=== PATIENT | female | born 1995 | race African-American/Black ===

== ENCOUNTER 2018-12-07 04:25 | Emergency (ER) | payer SELFPAY ==
[2018-12-07] MEDS ORDERED: Lidocaine 2% VISCOUS* 15 ML UDC PO ONE (05:45)
[2018-12-07] MEDS ORDERED: Al Hydrox/Mg Hydrox/Simet LIQ* 30 ML UDC PO ONE (05:45)
[2018-12-07] MEDS ORDERED: Ondansetron ODT TAB* 4 MG PO ONE (05:46)
--- NOTE | 2018-12-07 05:47 | ED ---
Abdominal Pain/Female - HPI Summary HPI Summary: Patient is a 23-year-old female who presents emergency department for abdominal pain that started acutely around 0 300 today. Patient states that she was sitting when pain started acutely. She notes nausea without vomiting. Pt. denies drug or ETOH use to me. Denies past medical hx. Pt. denies fever, chills , V/D, constipation, URI sxs, vaginal dc or bleeding. Pt. states she has had similar sxs in the past and was dx with gastritis. Sxs are moderate in severity. - History of Current Complaint Chief Complaint: EDAbdPain Stated Complaint: "SEVERE STOMACH PAIN" PER PT Time Seen by Provider: 12/07/18 05:35 Hx Obtained From: Patient Pain Intensity: 1 Allergies/Adverse Reactions: Allergies Allergy/AdvReac Type Severity Reaction Status Date / Time ipecac Allergy Unknown Verified 12/07/18 04:35 Reaction Details promethazine Allergy Unknown Verified 12/07/18 04:36 Reaction Details PMH/Surg Hx/FS Hx/Imm Hx Previously Healthy: Yes Infectious Disease History: No Infectious Disease History: Denies: Traveled Outside the [place] in Last 30 Days - Family History Known Family History: Positive: Non-Contributory - Social History Occupation: Employed Full-time Lives: With Family Alcohol Use: Occasionally Substance Use Type: Reports: Marijuana Smoking Status (MU): Light Every Day Tobacco Smoker Review of Systems Constitutional: Negative Negative: Fever, Chills Eyes: Negative ENT: Negative Cardiovascular: Negative Respiratory: Negative Positive: Abdominal Pain. Negative: Vomiting, Diarrhea, Nausea Genitourinary: Negative Negative: burning, dysuria, discharge, flank pain Musculoskeletal: Negative Neurological: Negative All Other Systems Reviewed And Are Negative: Yes Physical Exam Triage Information Reviewed: Yes Vital Signs On Initial Exam: Initial Vitals Temp Pulse Resp BP Pulse Ox 98.8 F 78 16 132/66 99 12/07/18 04:28 12/07/18 04:28 12/07/18 04:28 12/07/18 04:28 12/07/18 04:28 Vital Signs Reviewed: Yes Appearance: Positive: Well-Appearing - Pt. lying in bed sleeping when I walked into room. Friend present. Skin: Positive: Warm, Dry Head/Face: Positive: Normal Head/Face Inspection Eyes: Positive: Normal, EOMI Neck: Positive: Supple Respiratory/Lung Sounds: Positive: Clear to Auscultation, Breath Sounds Present Cardiovascular: Positive: Normal, RRR Abdomen Description: Positive: Other: - Abd. is soft with pain to epigastric region and LLQ. No rebound or guarding. Neurological: Positive: Normal, CN Intact II-III Psychiatric: Positive: Affect/Mood Appropriate Diagnostics - Vital Signs Vital Signs Temp Pulse Resp BP Pulse Ox 12/07/18 04:28 98.8 F 78 16 132/66 99 - Laboratory Result Diagrams: 12/07/18 05:55 12/07/18 05:55 Lab Statement: Any lab studies that have been ordered have been reviewed, and results considered in the medical decision making process. Abdominal Pain Fem Course/Dx - Course Course Of Treatment: Patient presenting with abdominal pain. He sleeping comfortably when I initially examined her. Vital signs are stable. Basic labs and urinalysis ordered. Patient given GI cocktail dose of Zofran which helped her symptoms. Blood work is unremarkable including negative and normal WBC. Urinalysis showed large amount of leukocytes, we'll treat for suspected UTI and gastritis. Patient given prescription for Pepcid and Keflex. Patient to follow-up with the [facility] and return to the ER if symptoms change or worsen. - Diagnoses Differential Diagnosis: Positive: Appendicitis, Constipation, Ectopic , Pelvic Inflammatory Disease, Renal Colic, Urinary Tract Infection Provider Diagnoses: UTI (urinary tract infection), Gastritis Discharge - Sign-Out/Discharge Documenting (check all that apply): Patient Departure Patient Received Moderate/Deep Sedation with Procedure: No - Discharge Plan Condition: Improved Disposition: HOME Prescriptions: Cephalexin CAP* [Keflex CAP*] 500 mg PO BID #20 cap Famotidine TAB* [Pepcid 20 MG TAB*] 20 mg PO DAILY #20 tab Patient Education Materials: Gastritis (ED), Urinary Tract Infection in Women ( ED) Referrals: [facility] [Outside] Additional Instructions: Follow up with the [facility] Take medication as directed Increase fluids Avoid alcohol use Return to ER if symptoms change or worsen - Billing Disposition and Condition Condition: IMPROVED Disposition: Home
[2018-12-07 06:30] LABS: ABS Basophils 0 10^3/ul (0-0.2); ABS Eosinophils 0.2 10^3/ul (0-0.6); ABS Lymphocytes 2.2 10^3/ul (1.0-4.8); ABS Monocytes 0.6 10^3/ul (0-0.8); ABS Neutrophils 5.5 10^3/ul (1.5-7.7); ABS Nucleated RBC 0 10^3/ul; Hematocrit 36 % (33-41); Hemoglobin 12.2 g/dL (12.0-16.0); Lymphocyte % 26.4 %; Mean Corpuscular HGB Conc 34 g/dL (31-36); Mean Corpuscular Hemoglobin 31 pg (27-31); Mean Corpuscular Volume 90 fL (80-97); Mean Platelet Volume 9.1 fL (7.4-10.4); Nucleated Red Blood Cells % 0.1; Platelet Count 222 10^3/uL (150-450); Red Blood Count 3.99 10^6 /uL (3.70-4.87); Red Cell Distribution Width 13 % (10.5-15); White Blood Count 8.5 10^3/uL (3.5-10.8)
[2018-12-07 06:41] LABS: ALT 26 U/L (7-52); AST 39 U/L (13-39); Albumin 4.1 g/dL (3.2-5.2); Albumin/Globulin Ratio 1.7 (1-3); Alkaline Phosphatase 40 U/L (34-104); Anion Gap 7 mmol/L (2-11); BUN/Creatinine Ratio 12.7 (8-20); Blood Urea Nitrogen 9 mg/dL (6-24); C Reactive Protein 2.15 mg/L (<8.01); CO2 Carbon Dioxide 23 mmol/L (22-32); Chloride 107 mmol/L (101-111); EGFR African American 123.4 (>60); Globulin 2.4 g/dL (2-4); Glucose 89 mg/dL (70-100); Potassium 3.7 mmol/L (3.5-5.0); Sodium 137 mmol/L (135-145); Total Protein 6.5 g/dL (6.4-8.9)
[2018-12-07 06:46] LABS: HCG Pregnancy < 0.60 mIU/mL
[2018-12-07 08:08] LABS: Urine Appearance Turbid; Urine Bacteria Absent (Absent); Urine Bilirubin Negative (Negative); Urine Blood Negative (Negative); Urine Color Yellow; Urine Glucose Negative (Negative); Urine Ketones Negative (Negative); Urine Nitrite Negative (Negative); Urine Protein Negative (Negative); Urine Red Blood Cell Absent (Absent); Urine Specific Gravity 1.014 (1.010-1.030); Urine Squamous Epithelial Cell Present (Absent); Urine Urobilinogen Negative (Negative); Urine White Blood Cell 3+(>20/hpf) (Absent)
[2018-12-07 08:42] VITALS: BP 110/57
== END 2018-12-07 08:42 | disposition home or self-care (01) ==
LOC: ED 04:25
DX: N39.0 Urinary tract infection, site not specified (principal); F17.210 Nicotine dependence, cigarettes, uncomplicated; Z88.8 Allergy status to other drugs, medicaments and biological substances
CPT/HCPCS: 36415; 80053; 81003; 81015; 84702; 85025; 86140; 87086; 99283; A9270-GY

== ENCOUNTER 2019-01-18 16:35 | Emergency (ER) | payer SELFPAY ==
[2019-01-18 17:02] VITALS: BP 119/68
--- NOTE | 2019-01-18 17:17 | UC ---
Throat Pain/Nasal Storm HPI - HPI Summary HPI Summary: 23-year-old male who thought he was suffering from some allergies since moving from [place] however he states he has been around a friend who has mono and he would like to be tested. He has not been in close contact with this person however he states they do share drinks once in a while. - History of Current Complaint Chief Complaint: UCGeneralIllness Stated Complaint: CONGESTED Time Seen by Provider: 01/18/19 16:55 Hx Obtained From: Patient ?: No Onset/Duration: Gradual Onset Severity: Mild Pain Intensity: 0 Cough: None Associated Signs & Symptoms: Positive: Negative - Epiglottits Risk Factors Epiglottis Risk Factors: Negative - Allergies/Home Medications Allergies/Adverse Reactions: Allergies Allergy/AdvReac Type Severity Reaction Status Date / Time ipecac Allergy Unknown Verified 01/18/19 17:03 Reaction Details promethazine Allergy Unknown Verified 01/18/19 17:03 Reaction Details PMH/Surg Hx/FS Hx/Imm Hx Previously Healthy: Yes - Surgical History Surgical History: None - Family History Known Family History: Positive: Non-Contributory - Social History Alcohol Use: Weekly Substance Use Type: Marijuana, Other Smoking Status (MU): Light Every Day Tobacco Smoker Household Exposure Type: Cigarettes Review of Systems All Other Systems Reviewed And Are Negative: Yes ENT: Positive: Nasal Discharge Is Patient Immunocompromised?: No Physical Exam Triage Information Reviewed: Yes Appearance: Well-Appearing, No Pain Distress, Well-Nourished Vital Signs: Initial Vital Signs Temp 99.1 F 01/18/19 16:55 Pulse 74 01/18/19 16:55 Resp 16 01/18/19 16:55 BP 119/68 01/18/19 16:55 Pulse Ox 100 01/18/19 16:55 Vital Signs Reviewed: Yes Eyes: Positive: Conjunctiva Clear ENT: Positive: Pharynx normal, TMs normal, Uvula midline Neck: Positive: Supple, Nontender, No Lymphadenopathy Respiratory: Positive: Lungs clear, Normal breath sounds, No respiratory distress, No accessory muscle use Cardiovascular: Positive: RRR, No Murmur, Pulses Normal, Brisk Capillary Refill Abdomen Description: Positive: Nontender, No Organomegaly, Soft Bowel Sounds: Positive: Present Musculoskeletal: Positive: Strength Intact, ROM Intact Neurological: Positive: Alert, Muscle Tone Normal Psychological Exam: Normal Skin Exam: Normal Throat Pain/Nasal Course/Dx - Course Course Of Treatment: Patient is comfortable here. I advised him not sure eating or drinking utensils. A Monospot was drawn and we will call him with the results of that. Follow-up care [facility] as needed. - Differential Dx/Diagnosis Provider Diagnosis: URI (upper respiratory infection) Discharge - Sign-Out/Discharge Documenting (check all that apply): Patient Departure All imaging exams completed and their final reports reviewed: No Studies - Discharge Plan Condition: Good Disposition: HOME Patient Education Materials: Mononucleosis (ED), Upper Respiratory Infection ( [place]) Referrals: [facility] [Outside] No Primary Care Phys,NOPCP [Primary Care Provider] - Additional Instructions: Increase fluids, do not share eating or drinking utensils, we will call you with the results of the Monospot in one or 2 days when it comes back. - Billing Disposition and Condition Condition: GOOD Disposition: Home
--- NOTE | 2019-01-20 07:06 | UC ---
- Progress Note Progress Note: Neg monospot no change michael 01/20/19 Course/Dx - Diagnoses Provider Diagnoses: URI (upper respiratory infection) Discharge - Sign-Out/Discharge Documenting (check all that apply): Post-Discharge Follow Up All imaging exams completed and their final reports reviewed: No Studies - Discharge Plan Condition: Good Disposition: HOME Patient Education Materials: Mononucleosis (ED), Upper Respiratory Infection ( [place]) Referrals: [facility] [Outside] No Primary Care Phys,NOPCP [Primary Care Provider] - Additional Instructions: Increase fluids, do not share eating or drinking utensils, we will call you with the results of the Monospot in one or 2 days when it comes back. - Billing Disposition and Condition Condition: GOOD Disposition: Home
[2019-01-23 16:14] LABS: EBV Capsid Ag IgG Ab Negative (Negative); EBV Capsid Ag IgM Ab Negative (Negative); Epstein-Barr Nuclear Antigen Negative (Negative)
== END 2019-01-18 17:30 | disposition home or self-care (01) ==
LOC: UCEAST 16:35
DX: J06.9 Acute upper respiratory infection, unspecified (principal); F17.210 Nicotine dependence, cigarettes, uncomplicated; Z88.8 Allergy status to other drugs, medicaments and biological substances
CPT/HCPCS: 36415; 86308; 86664; 86665; 99211; G0463

== ENCOUNTER 2019-03-30 02:36 | Emergency (ER) | payer SELFPAY ==
--- NOTE | 2019-03-30 02:58 | ED ---
Shortness of Breath - HPI Summary HPI Summary: This patient is a 23 year old F presenting to ED with a chief complaint of difficulty breathing since 0200 this morning. Patient states she was lying in bed doing a lung exercise that requires holding her breath. She regularly completes this exercise. The patient rates the pain 0/10 in severity. Symptoms aggravated by nothing. Symptoms alleviated by nothing. Patient reports her sinuses were slightly congested yesterday. Patient denies CP. Patient did not drink alcohol or use any drugs tonight. - History of Current Complaint Chief Complaint: EDShortnessOfBreath Hx Obtained From: Patient Onset/Duration: Lasting Hours - Since 0200, Still Present Current Severity: Mild Dyspnea At: Rest - Breathing exercise Aggravating Factors: Nothing Alleviating Factors: Nothing Associated Signs & Symptoms: Negative - CP, Nasal Congestion - Allergy/Home Medications Allergies/Adverse Reactions: Allergies Allergy/AdvReac Type Severity Reaction Status Date / Time ipecac Allergy Unknown Verified 01/18/19 17:03 Reaction Details promethazine Allergy Unknown Verified 01/18/19 17:03 Reaction Details PMH/Surg Hx/FS Hx/Imm Hx Endocrine/Hematology History: Denies: Hx Diabetes, Hx Thyroid Disease Cardiovascular History: Denies: Hx Hypertension Respiratory History: Denies: Hx Chronic Obstructive Pulmonary Disease (COPD) - Surgical History Surgery Procedure, Year, and Place: denies Infectious Disease History: No Infectious Disease History: Denies: Hx Hepatitis, Traveled Outside the [place] in Last 30 Days - Family History Known Family History: Positive: Non-Contributory - Social History Alcohol Use: Weekly Hx Substance Use: Yes Substance Use Type: Reports: Marijuana, Other Hx Tobacco Use: Yes Smoking Status (MU): Light Every Day Tobacco Smoker Review of Systems ENT: Other - Mild congestion Negative: Chest Pain Respiratory: Other - Difficulty breathing All Other Systems Reviewed And Are Negative: Yes Physical Exam - Summary Physical Exam Summary: Appearance: Well-appearing, Well-nourished, lying in bed comfortable Skin: Warm, dry, no obvious rash Eyes: sclera anicteric, no conjunctival pallor ENT: mucous membranes moist Neck: deferred Respiratory: No signs of respiratory distress Cardiovascular: Appears well perfused, pulses are nml Abdomen: deferred Musculoskeletal: Moving all 4 extremities without obvious discomfort Neurological: Awake and alert, mentation is normal, speech is fluent and appropriate Psychiatric: affect is normal, does not appear anxious or depressed Triage Information Reviewed: Yes Vital Signs On Initial Exam: Initial Vitals Temp Pulse Resp BP Pulse Ox 98.4 F 73 18 133/88 100 03/30/19 02:39 03/30/19 02:39 03/30/19 02:39 03/30/19 02:39 03/30/19 02:39 Vital Signs Reviewed: Yes Diagnostics - Vital Signs Vital Signs Temp Pulse Resp BP Pulse Ox 03/30/19 02:39 98.4 F 73 18 133/88 100 - Laboratory Lab Statement: Any lab studies that have been ordered have been reviewed, and results considered in the medical decision making process. Course/Dx - Course Course Of Treatment: This patient is a 23 year old F presenting to ED with a chief complaint of difficulty breathing since 0200 this morning. Physical exam is completely normal. Patient will be discharged home with dx of hyperventilation. Patient understands and agrees with this plan. - Diagnoses Provider Diagnoses: Hyperventilation Discharge - Sign-Out/Discharge Documenting (check all that apply): Patient Departure - Discharge Patient Received Moderate/Deep Sedation with Procedure: No - Discharge Plan Condition: Good Disposition: HOME Patient Education Materials: Hyperventilation (ED) Referrals: [facility] [Outside] - If Needed Additional Instructions: I don't think you need to do breathing exercises, and it may be that they triggered tonight's episode. In any event your exam including oxygenation is perfectly normal, and I think your symptoms will resolve on their own. - Billing Disposition and Condition Condition: GOOD Disposition: Home - Attestation Statements Document Initiated by Scribe: Yes Documenting Scribe: Samson Max Provider For Whom Maddy is Documenting (Include Credential): MD Moe Gageibwade Attestation: Samson Mayen, scribed for Mayur Story MD on 03/31/19 at 0423. Scribe Documentation Reviewed: Yes Provider Attestation: The documentation as recorded by the Samson junior accurately reflects the service I personally performed and the decisions made by me, Mayur Story MD Status of Scribe Document: Viewed
[2019-03-30 03:11] VITALS: BP 121/86
== END 2019-03-30 03:10 | disposition home or self-care (01) ==
LOC: ED 02:36
DX: R06.4 Hyperventilation (principal); Z88.8 Allergy status to other drugs, medicaments and biological substances; F17.200 Nicotine dependence, unspecified, uncomplicated
CPT/HCPCS: 99282